=== PATIENT | male | born 1995 | race Caucasian/White ===

== ENCOUNTER 2020-10-18 13:48 | Emergency (ER) | payer SELFPAY ==
[~2020-10-18 13:48] MED LIST: AZELASTINE137 MCG/0.; IBUPROFEN600 MG PO; ZOFRAN4 MG PO
== END 2020-10-18 17:09 | disposition home or self-care (01) ==
LOC: ER1 13:48
DX: R51.9 Headache, unspecified (principal); F17.200 Nicotine dependence, unspecified, uncomplicated
CPT/HCPCS: 99283

== ENCOUNTER 2020-10-26 01:01 | Emergency (ER) | payer SELFPAY | END 2020-10-26 01:48 | disposition home or self-care (01) | LOC: ER1 01:01 | DX: G44.009 Cluster headache syndrome, unspecified, not intractable (principal); F17.200 Nicotine dependence, unspecified, uncomplicated | CPT/HCPCS: 99283 ==

== ENCOUNTER 2021-02-27 12:44 | Emergency (ER) | payer SELFPAY ==
[2021-02-27] MEDS ORDERED: NAPROSYN500 MG PO (16:16)
== END 2021-02-27 17:20 | disposition home or self-care (01) ==
LOC: ER1 12:44
DX: S20.211A Contusion of right front wall of thorax, initial encounter (principal); F17.200 Nicotine dependence, unspecified, uncomplicated; W22.8XXA Striking against or struck by other objects, initial encounter
CPT/HCPCS: 71111; 99283

== ENCOUNTER 2021-04-04 19:53 | Emergency (ER) | payer OTHER ==
[~2021-04-04 19:53] MED LIST changes: +NAPROSYN500 MG PO
[2021-04-04] MEDS ORDERED: ERYTHROMYCIN O3.5 GM OD (21:11)
== END 2021-04-04 21:33 | disposition home or self-care (01) ==
LOC: ER1 19:53
DX: H00.011 Hordeolum externum right upper eyelid (principal)
CPT/HCPCS: 99283

== ENCOUNTER 2021-04-05 20:19 | Emergency (ER) | payer OTHER ==
[~2021-04-05 20:19] MED LIST changes: +ERYTHROMYCIN O3.5 GM OD
== END 2021-04-05 22:39 | disposition home or self-care (01) ==
LOC: ER1 20:19
DX: U07.1 COVID-19 (principal); F17.200 Nicotine dependence, unspecified, uncomplicated
CPT/HCPCS: 0240U; 99284